=== PATIENT | male | born 1975 | race Caucasian/White ===

== ENCOUNTER 2017-04-04 12:05 | Emergency (ER) | payer SELFPAY ==
[2017-04-04 12:29] VITALS: BP 119/82
[2017-04-04] MEDS: DIPH,PERTUSS(ACELL),TET VAC/PF 0.5 ML DISP.SYRIN IM ONE (12:39)
[2017-04-04] MEDS: SODIUM BICARBONATE 2.4 MEQ VIAL INJ ONE (12:59)
[2017-04-04] MEDS: Lidocaine 1% 5ml(IM or SUTURE)(PAIN CLINIC) IJ ONE (12:59)
--- NOTE | 2017-04-04 13:17 | ED Physician Documentation ---
General Adult - HISTORIAN Historian: patient - HPI Stated Complaint: laceration Chief Complaint: Laceration/Recheck/Suture Onset: hours Further Comments: yes (41 year old male patient presents after hitting the rear view mirror with right hand. Laceration to dorsal aspect of middle finger. C/ O pain with movement. Last tetanus unknown.) - ROS CONST: no problems EYES/ENT: none CVS/RESP: none GI/: none MS/SKIN/LYMPH: none NEURO/PSYCH: denies: headache - PAST HX Past History: none Allergies/Adverse Reactions: Allergies Allergy/AdvReac Type Severity Reaction Status Date / Time No Known Allergies Allergy Verified 04/04/17 12:18 Home Medications: Ambulatory Orders Medication Instructions Recorded Risperidone [Risperdal ODT] 0.5 mg PO DAILY 04/04/17 - SOCIAL HX Smoking History: cigarettes - FAMILY HX Family History: No - VITAL SIGNS Vital Signs: Vital Signs Temp Pulse Resp BP Pulse Ox 98.4 F 86 16 119/82 98 04/04/17 13:12 04/04/17 13:12 04/04/17 13:12 04/04/17 13:12 04/04/17 13:12 - REVIEWED ASSESSMENTS Nursing Assessment Reviewed: Yes Vitals Reviewed: Yes Procedures Wound Location: other (right hand - middle finger) Wound Length: 3 Wound's Depth, Shape: linear Wound Explored: clean Irrigated w/ Saline (ccs): 300 Betadine Prep?: No (chlorhexidine) Anesthesia: 1% Lidocaine Wound Repaired With: sutures Suture Size/Type: 5:0 Number of Sutures: 5 Deep Layer Suture Size/Type: 5:0 Sterile Dressing Applied?: Yes ED Results Lab/Radiology - Radiology Radiology Impressions: Examination: Plain film hand History: Injury Comparison exams: None available Findings: 3 views the hand demonstrate normal cortical margins. No fracture. No dislocation. No soft tissue abnormality. Impression: No acute osseous abnormality. Electronically signed on Apr 04, 2017 12:54:37 PM CDT by: Terrance Alegre - Orders Orders: ED Orders Category Date Time Status HAND 3 VIEWS OR MORE [RAD] Stat Exams 04/04/17 Ordered Diph,Pertuss(Acell),Tet Vac/Pf [Adacel] Med 04/04/17 12:35 Discontinued 0.5 ml IM .ONCE ONE Lidocaine 1% 5ml(IM or SUTURE) [Xylocaine] Med 04/04/17 12:27 Discontinued 50 mg IJ NOW ONE Sodium Bicarbonate [Neut] Med 04/04/17 12:27 Discontinued 2.4 meq INJ NOW ONE General Adult Physical Exam - PHYSICAL EXAM GENERAL APPEARANCE: moderate distress EENT: eye inspection normal, ALESSANDRO RESPIRATORY: no resp distress CVS: reg rate & rhythm SKIN: warm/dry, normal color, other (3 cm laceration to dorsal aspect of right middle finger) NEURO: oriented X3, motor nml, sensation nml, mood/affect nml, cognition normal Discharge Clincal Impression: Laceration of finger Qualifiers: Encounter type: initial encounter Finger: middle finger Damage to nail status: without damage Foreign body presence: without foreign body Laterality: right Qualified Code(s): S61.212A - Laceration without foreign body of right middle finger without damage to nail, initial encounter Contusion of hand Qualifiers: Encounter type: initial encounter Laterality: right Qualified Code(s): S60.221A - Contusion of right hand, initial encounter Referrals: Primary Doctor,No [Primary Care Provider] - 2 Days Additional Instructions: Keep the wound clean and dry until it has healed. You can wash or shower after 24 hours. Do not soak the wound in water and make sure it is dry afterwards (gently pat the area dry with a clean towel). Do not get into a swimming pool, hot tub, garcia or river until your stitches are removed. To remove your dressing, gently pull it off. If needed, you can dampen it with water then gently pull it off. Clean the laceration twice a day with hibiclens and rinse with water clean away any scabbed area Apply thin coat of antibiotic ointment after cleaning the wound. Cover with non-adherent bandage if able. If you have pain, take simple pain relief medication such as Tylenol or ibuprofen. If bandages or dressings get wet, they will need to be changed. Call your doctor for any signs of symptom of infection redness, drainage, pain. Have your stitches removed at your doctors office in 10 days. Condition: Stable Disposition: 01 HOME, SELF-CARE Decision to Admit: NO Decision Time: 13:00
--- NOTE | 2017-04-04 18:50 | Diagnostic Imaging Report ---
MAURICIO MCDONNELL (CAROLYN) - ER [facility] [id number] [facility] [address] [id number] Report Submission Date: Apr 04, 2017 12:54:37 PM CDT Patient Study Name: TALIA VINCENT Date: Apr 04, 2017 12:34:58 PM CDT Modality Type: CR Gender: M Description: UPPER EXTREMITY : 77 Institution: [facility] Physician: MAURICIO MCDONNELL (CAROLYN) - ER Examination: Plain film hand History: Injury Comparison exams: None available Findings: 3 views the hand demonstrate normal cortical margins. No fracture. No dislocation. No soft tissue abnormality. Impression: No acute osseous abnormality. Electronically signed on Apr 04, 2017 12:54:37 PM CDT by: Terrance GIBSON
== END 2017-04-04 13:12 | disposition home or self-care (01) ==
LOC: ED 12:05
DX: S60.221A Contusion of right hand, initial encounter (principal); S61.212A Laceration without foreign body of right middle finger without damage to nail, initial encounter; X58.XXXA Exposure to other specified factors, initial encounter; Y93.9 Activity, unspecified; Y99.9 Unspecified external cause status
CPT/HCPCS: 12002; 73130; 90471; 90715; 96372; 99283